=== PATIENT | male | born 1995 | race Caucasian/White ===

== ENCOUNTER 2018-02-14 14:37 | Emergency (ER) | payer OTHER ==
[~2018-02-14] VITALS: Ht 177.8 cm; Wt 63.4 kg
[2018-02-14 14:50] VITALS: TEMP 36.3; Ht 177.8 cm; Wt 63.4 kg
[2018-02-14 15:36] LABS: BASO % 0.2 %; BASO ABS # 0.01 K/uL (0-0.2); EOS % 0.4 %; EOS ABS # 0.02 K/uL (0-0.5); HEMATOCRIT 45.1 % (42-52); HEMOGLOBIN 16.7 g/dL (14.0-18.0); IG# 0.01 K/uL (0.00-0.02); LYMPH % 29.1 %; LYMPH ABS # 1.62 K/uL (1.2-3.4); MEAN CELL VOLUME 91.1 fL (80-100); MEAN CORPUSCULAR HEMOGLOBIN 33.7 pg (25-34); MEAN PLATELET VOLUME 10.1 fL (7.4-10.4); MONO % 7.4 %; MONO ABS # 0.41 K/uL (0.11-0.59); NEUT % 62.7 %; PLATELET COUNT 265 K/uL (130-400); RED CELL DISTRIBUTION WIDTH CV 11.9 % (11.5-14.5); RED CELL DISTRIBUTION WIDTH SD 40.1 fL (36.4-46.3); WHITE BLOOD COUNT 5.57 K/uL (4.8-10.8)
[2018-02-14 15:53] LABS: CALCIUM 9.1 mg/dl (8.5-10.1); CREATININE 1.19 mg/dl (0.60-1.40); POTASSIUM 3.6 mmol/L (3.5-5.1)
--- NOTE | 2018-02-14 16:12 | DIAGNOSTIC IMAGING REPORT ---
(TESTICULAR) SCROTUM-CONT CLINICAL HISTORY: 22 years-old Male presenting with swelling of shaft/testicule pain . TECHNIQUE: Real-time grayscale and color and spectral Doppler ultrasound imaging of the scrotum was performed. COMPARISON: None. FINDINGS: Penis: Minimal subcutaneous edema or skin thickening suggested. Patent superficial artery and vein with normal waveforms. Normal sonographic appearance of the corpus spongiosum and corpora cavernosum. No hyperemia. Right testis: Normal echogenicity and echotexture. Testis measures 4.9 x 2.4 x 2.9 cm. Normal color Doppler flow and arterial and venous waveforms in the testicular parenchyma. Epididymal head normal. No hydrocele. No varicocele. Left testis: Normal echogenicity and echotexture. Testis measures 4.9 x 2.5 x 3.1 cm. Normal color Doppler flow and arterial and venous waveforms in the testicular parenchyma. Slight swelling of the epididymis without evidence of hyperemia. Trace hydrocele No varicocele. Symmetric perfusion of the testes. IMPRESSION: 1. Normal sonographic evaluation of the penis. Patent superficial vasculature. 2. No evidence of testicular torsion. Electronically signed by: Josh Neol M.D. 02/14/2018 4:11 PM Dictated Date/Time: 02/14/2018 4:08 PM
[2018-02-14] MEDS ORDERED: MULTTAB58 PO (17:06)
[2018-02-14 17:25] VITALS: BP 123/69; PULSE 60; O2SAT 95
--- NOTE | 2018-02-14 18:29 | EMERGENCY ROOM VISIT NOTE ---
History Report prepared by Zeeshan: Anna Galvin Under the Supervision of: Dr. Narayan Arthur D.O. First contact with patient: 14:54 Chief Complaint: PENIS PAIN Stated Complaint: SWOLLEN PENIS Nursing Triage Summary: patient woke up this AM with an erection. patient went to the kitchen got breakfast walked to the bathroom and noticed penis to still be erect, "a little numb". patient states erection went away after 10 more minutes. patient states, "It's still a little swollen.. and thats not normal." History of Present Illness The patient is a 22 year old male who presents to the Emergency Room with complaints of constant penile pain beginning this morning. The patient states he woke up this morning with an erection that lasted for about 10 minutes. About two hours after his erection resided the patient went to the bathroom and he noticed his penis was swollen and "cool to the touch". He notes some generalized groin discomfort but denies any pain and states it is a 0/10. He denies any recent intercourse or penile trauma. He did masturbate last night but notes that there is no trauma and penis appeared normal afterwards. No recent intercourse. No history of STDs. Pt denies headache, cough, runny nose , change in vision, testicular pain, fevers, chest pain, shortness of breath, nausea, vomiting, diarrhea, pain with urination, and melena. Source of History: patient Onset: this morning Position: other (penile ) Quality: other (pain) Timing: constant Associated Symptoms: No chest pain, No SOB, No nausea, No vomiting, No urinary symptoms Review of Systems See HPI for pertinent positives & negatives. A total of 10 systems reviewed and were otherwise negative. Family History Patient reports no known family medical history. Social History Smoking Status: Never Smoker Occupation Status: student Current/Historical Medications Scheduled Multiple Vitamin (Multivitamin), 1 TAB PO DAILY Allergies Coded Allergies: Cefprozil (Unverified Adverse Reaction, Intermediate, rash, 02/14/18) Sulfamethoxazole w/Trimethoprim (Unverified Adverse Reaction, Intermediate , rash, 02/14/18) Amoxicillin (Unverified Adverse Reaction, Unknown, hives, 02/14/18) Physical Exam Vital Signs Date Time Temp Pulse Resp B/P (MAP) Pulse Ox O2 Delivery O2 Flow Rate FiO2 02/14/18 17:25 60 16 123/69 95 02/14/18 16:24 59 16 124/64 100 Room Air 02/14/18 15:25 16 124/64 97 Room Air 02/14/18 14:50 36.3 61 18 135/79 99 Room Air Physical Exam GENERAL: Sitting up in bed, alert, well appearing, well nourished, no distress, non-toxic EYE EXAM: normal conjunctiva. OROPHARYNX: no exudate, no erythema, lips, buccal mucosa, and tongue normal and mucous membranes are moist NECK: supple, no nuchal rigidity, no adenopathy, non-tender LUNGS: Clear to auscultation. Normal chest wall mechanics HEART: no murmurs, S1 normal and S2 normal ABDOMEN: abdomen soft, non-tender, normo-active bowel sounds, no masses, no rebound or guarding. : no inguinal hernia, no testicle tenderness, positive cremasteric discharge, fullness of flaccid distal third shaft of the penis with swelling without erythema or induration, no penile discharge. SKIN: no rashes and no bruising UPPER EXTREMITIES: upper extremities are grossly normal. LOWER EXTREMITIES: No pitting edema. NEURO EXAM: Normal sensorium, cranial nerves II-XII grossly intact, normal speech, no gross weakness of arms, no gross weakness of legs. Medical Decision & Procedures ER Provider Diagnostic Interpretation: Radiology results as stated below per my review and the radiologist's interpretation: (TESTICULAR) SCROTUM-CONT FINDINGS: Penis: Minimal subcutaneous edema or skin thickening suggested. Patent superficial artery and vein with normal waveforms. Normal sonographic appearance of the corpus spongiosum and corpora cavernosum. No hyperemia. Right testis: Normal echogenicity and echotexture. Testis measures 4.9 x 2.4 x 2.9 cm. Normal color Doppler flow and arterial and venous waveforms in the testicular parenchyma. Epididymal head normal. No hydrocele. No varicocele. Left testis: Normal echogenicity and echotexture. Testis measures 4.9 x 2.5 x 3.1 cm. Normal color Doppler flow and arterial and venous waveforms in the testicular parenchyma. Slight swelling of the epididymis without evidence of hyperemia. Trace hydrocele No varicocele. Symmetric perfusion of the testes. IMPRESSION: 1. Normal sonographic evaluation of the penis. Patent superficial vasculature. 2. No evidence of testicular torsion. Electronically signed by: Josh Noel M.D. Laboratory Results 02/14/18 15:20 Red Blood Count 4.95, Mean Corpuscular Volume 91.1, Mean Corpuscular Hemoglobin 33.7, Mean Corpuscular Hemoglobin Concent 37.0, Mean Platelet Volume 10.1, Neutrophils (%) (Auto) 62.7, Lymphocytes (%) (Auto) 29.1, Monocytes (%) (Auto) 7.4, Eosinophils (%) (Auto) 0.4, Basophils (%) (Auto) 0.2, Neutrophils # (Auto) 3.50, Lymphocytes # (Auto) 1.62, Monocytes # (Auto) 0.41, Eosinophils # (Auto) 0.02, Basophils # (Auto) 0.01 02/14/18 15:20 Test 02/14/18 15:20 02/14/18 15:25 White Blood Count 5.57 K/uL (4.8-10.8) Red Blood Count 4.95 M/uL (4.7-6.1) Hemoglobin 16.7 g/dL (14.0-18.0) Hematocrit 45.1 % (42-52) Mean Corpuscular Volume 91.1 fL (80-100) Mean Corpuscular Hemoglobin 33.7 pg (25-34) Mean Corpuscular Hemoglobin Concent 37.0 g/dl (32-36) Platelet Count 265 K/uL (130-400) Mean Platelet Volume 10.1 fL (7.4-10.4) Neutrophils (%) (Auto) 62.7 % Lymphocytes (%) (Auto) 29.1 % Monocytes (%) (Auto) 7.4 % Eosinophils (%) (Auto) 0.4 % Basophils (%) (Auto) 0.2 % Neutrophils # (Auto) 3.50 K/uL (1.4-6.5) Lymphocytes # (Auto) 1.62 K/uL (1.2-3.4) Monocytes # (Auto) 0.41 K/uL (0.11-0.59) Eosinophils # (Auto) 0.02 K/uL (0-0.5) Basophils # (Auto) 0.01 K/uL (0-0.2) RDW Standard Deviation 40.1 fL (36.4-46.3) RDW Coefficient of Variation 11.9 % (11.5-14.5) Immature Granulocyte % (Auto) 0.2 % Immature Granulocyte # (Auto) 0.01 K/uL (0.00-0.02) Anion Gap 7.0 mmol/L (3-11) Est Creatinine Clear Calc Drug Dose 88.1 ml/min Estimated GFR () 100.6 Estimated GFR (Non- 86.8 BUN/Creatinine Ratio 9.4 (10-20) Calcium Level 9.1 mg/dl (8.5-10.1) Urine Color YELLOW Urine Appearance CLEAR (CLEAR) Urine pH 7.0 (4.5-7.5) Urine Specific [place] 1.007 (1.000-1.030) Urine Protein NEG (NEG) Urine Glucose (UA) NEG (NEG) Urine Ketones NEG (NEG) Urine Occult Blood NEG (NEG) Urine Nitrite NEG (NEG) Urine Bilirubin NEG (NEG) Urine Urobilinogen NEG (NEG) Urine Leukocyte Esterase NEG (NEG) Urine WBC (Auto) 0 /hpf (0-5) Urine RBC (Auto) 0-4 /hpf (0-4) Urine Hyaline Casts (Auto) 0 /lpf (0-5) Urine Epithelial Cells (Auto) 0-5 /lpf (0-5) Urine Bacteria (Auto) NEG (NEG) Laboratory results per my review. ED Course ED COURSE: Vital signs were reviewed and showed normal The patients medical record was reviewed The above diagnostic studies were performed and reviewed. ED treatments and interventions as stated above. 1456: The patient was evaluated in room C5. A complete history and physical examination was performed. 1701: I reviewed the patient's case with Dr. Ibrahim-Urology. He recommends having the patient rest ice and follow up as an outpatient. 1710: I updated the patient on his test results. 1722: Upon reevaluation, the patient is resting comfortably.I discussed my findings with the patient and he understands and agrees with the treatment plan. Based on the patients age, coexisting illnesses, exam and lab findings the decision to treat as an outpatient was made. The patient remained stable while under my care. The patient appeared well at the time of discharge. Medical Decision Differential diagnoses include: testicular torsion, hernia, phimosis, parphimosis, cellulitis, venous occlusion arteriole occlusion, trauma. Patient is a 22-year-old male that presents to ER for swelling of the penis. Other complaints. Ultrasounds unremarkable. No signs of torsion. No signs of infection. CBC along with BMP and UA was negative. Discussed with urology. They recommend following up with PCP as an outpatient. Uncertain of the true cause of the edema but there is no signs of infection or vascular compromise. Discussed with Pt concerning signs and symptoms to watch out for. Pt was instructed to follow up with their PCP and discussed with the patient their option to return to the ED at anytime for persistent or worsening symptoms. The appropriate anticipatory guidance and out-patient management, including indications for return to the emergency department, were explained at length to the patient and understood. Medication Reconcilliation Current Medication List: was personally reviewed by me Blood Pressure Screening Patient's blood pressure: Normal blood pressure Consults Time Called: 1648 Consulting Physician: Dr. IbrahimUrology Returned Call: [phone] I reviewed the patient's case with Dr. Ibrahim-Urology. He recommends having the patient rest ice and follow up as an outpatient. Impression Primary Impression: Swelling, penis Scribe Attestation The scribe's documentation has been prepared under my direction and personally reviewed by me in its entirety. I confirm that the note above accurately reflects all work, treatment, procedures, and medical decision making performed by me. Departure Information Dispostion Home / Self-Care Referrals No Doctor, Assigned (PCP) Forms HOME CARE DOCUMENTATION FORM, IMPORTANT VISIT INFORMATION, WORK / SCHOOL INSTRUCTIONS Patient Instructions My [facility] Additional Instructions Please follow up with your primary care doctor or if you are a student, [facility] with in the next 24 hours. Any worsening of your symptoms, please return to the ED immediately. This includes any fevers greater than 100.4, erythema, increased swelling of the penis, erection lasting longer than 4 hours, penile discharge, pain with urination, or any other concerning signs or symptoms from your standpoint. Please apply ice as needed and use supportive underwear to help reduce swelling. Please follow-up with urology if swelling does not resolve within the next 3-4 days.
== END 2018-02-14 17:26 | disposition home or self-care (01) ==
LOC: C.EDB 14:40 → C.EDC 17:26
DX: N48.89 Other specified disorders of penis (principal); Z88.2 Allergy status to sulfonamides; Z88.1 Allergy status to other antibiotic agents